=== PATIENT | male | born 1960 | race Caucasian/White ===

== ENCOUNTER 2025-04-03 06:13 | Day surgery (SDC) | payer BC, SELFPAY ==
[2025-04-03] VITALS (12 sets, daily range): BP systolic 132–158; BP diastolic 68–93; BMI 23.3
[2025-04-03] MEDS: NSS 234 ML IV (07:20)
--- NOTE | 2025-04-03 08:14 | ITS.CL.CATH ---
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
Cardiac Catheterization
Procedure Report:
CARDIAC CATHETERIZATION REPORT
Date of Procedure: 04/03/2025
Referring: Yamel King M.D.
INDICATION: Accelerating chest pain, abnormal stress test.
PROCEDURE:
1. Left heart catheterization.
2. Coronary angiography.
A total of 27 minutes of procedural/moderate sedation was utilized. An independent medical doctor was present to assist with and help manage the patient's level of consciousness and physiologic status.
ACCESS:
1. 6 [place] right radial artery using modified Seldinger technique.
CATHETERS:
1. 5 [place] JR4.
2. 5 [place] JL 3.5.
HEMODYNAMIC DATA
Weight (kg): 77.6
AO (s/d/x, mmHg): 120/71/91
LV (s/x mmHg): 121/12
LEFT VENTRICULOGRAPHY: Not performed.
CORONARY ANGIOGRAPHY
Dominance: Right.
Left Main: Normal size, trifurcating vessel. There is a 30% lesion in the distal margin of the vessel.
LAD: Normal size vessel giving rise to 1 large diagonal branch which supplies the majority of the anterolateral wall. There is a 60% lesion in the proximal vessel. The LAD is chronically totally occluded immediately after the origin of the
first diagonal. It is supplied by faint collaterals from the circumflex and more robust collaterals from the RPDA.
Ramus: Small size, 1 mm, vestigial vessel.
Circumflex: Normal size, nondominant vessel giving rise to 2 obtuse marginals. There is a 70% lesion in the origin of OM1. There is an 80% lesion in the mid circumflex, proximal to the origin of OM 2.
RCA: Large size, dominant vessel with a large posterolateral arcade. There is a 70% lesion in the proximal vessel. There is a long, 30-40% lesion in the mid vessel. There is a 50% lesion in the ostium of the RPDA.
INTERVENTION(S)
None.
Closure Device: Vascular band.
Radiation (mGy): 340.85
DAP (cm2.Gy): 24.3945
Fluoroscopy time (minutes): 2.0
CONCLUSIONS
1. 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
and 80% lesion in the mid circumflex proximal to the origin of OM 2, 70% lesion of the proximal RCA, 30-40% lesion in the mid RCA and a 50% lesion in the ostium of the RPDA.
2. Normal filling pressures (LVEDP = 12 mmHg at 77.6 kg).
RECOMMENDATIONS:
1. Expectant management after cardiac catheterization via right radial approach.
2. Limited weight bearing on the right wrist for one week.
3. Consultation with CT surgery regarding optimal revascularization strategy.
4. Start metoprolol succinate 25 mg daily.
5. Increase simvastatin to 40 mg daily. Goal LDL <55.
6. Echocardiogram through [facility], ordered and pending.
Copy to: Yamel King M.D., Eunice Armstrong D.O.
Rogerio Rankin DO, FACC, FACP
[2025-04-03] MEDS: NSS 1000 IV (08:38)
== END 2025-04-03 11:00 | disposition home or self-care (01) ==
LOC: CATH 06:13
PROVIDERS: ATTENDING PHYSICIAN Internal Medicine Cardiovascular Disease; CONSULT PHYSICIAN Thoracic Surgery (Cardiothoracic Vascular Surgery); FAMILY PHYSICIAN Internal Medicine; OTHER PHYSICIAN Internal Medicine Cardiovascular Disease
DX: I25.10 Atherosclerotic heart disease of native coronary artery without angina pectoris (principal); I25.82 Chronic total occlusion of coronary artery; R07.89 Other chest pain; R94.39 Abnormal result of other cardiovascular function study; I10 Essential (primary) hypertension; E78.5 Hyperlipidemia, unspecified; G43.909 Migraine, unspecified, not intractable, without status migrainosus; G58.8 Other specified mononeuropathies; Z79.82 Long term (current) use of aspirin
CPT/HCPCS: 99152; 99153; C1894; 93458; Q9967

== ENCOUNTER 2025-07-11 08:56 | Outpatient (RCR) | payer BC, SELFPAY | END 2025-07-11 23:59 | disposition home or self-care (01) | LOC: CRHB 08:56 | PROVIDERS: ATTENDING PHYSICIAN Internal Medicine Cardiovascular Disease | DX: Z95.1 Presence of aortocoronary bypass graft (principal) | CPT/HCPCS: 93797; 93798 ==

== ENCOUNTER 2025-08-11 11:40 | Outpatient (RCR) | payer BC, SELFPAY | END 2025-08-11 23:59 | disposition home or self-care (01) | LOC: CRHB 11:40 | PROVIDERS: ATTENDING PHYSICIAN Internal Medicine Cardiovascular Disease; FAMILY PHYSICIAN Internal Medicine | DX: Z95.1 Presence of aortocoronary bypass graft (principal) | CPT/HCPCS: 93797; 93798 ==